=== PATIENT | male | born 1945 | race Caucasian/White ===

== ENCOUNTER → 2019-01-18 | Outpatient (CLI) | payer OTHER ==
[2018-05-21 11:35] VITALS: BP 119/79
[~2019-01-18] MED LIST: ATEN50TA PO; CYAN-25 PO; CYAN100072 PO; DILT180C2 PO; DILT360C PO; DOXA2TAB2 PO; ENAL20TA PO; HYDR12.575 PO; METF500T16 PO; MULT1TAB6 PO; OMEG1CAP6 PO; OMEG300C PO; RANI75TA89 PO; SIMV40TA3 PO
--- NOTE | 2019-01-20 13:53 | RAD ---
MR#: [id number] Date of Study: 01/18/2019 Ordering Physician: CORNELIO TORRES, Referring Physician: CORNELIO TORRES, Tech: Calixto Landers MBA, RDMS, RVT, RDCS, RTR APPROVED REPORT Patient Location: OUT-PATIENT Indications Rest Pain:Bilaterally VELOCITY AND DOPPLER WAVEFORM ANALYSIS RIGHT cm/secWaveformSeverity LEFT cm/secWaveform Severity dCFA 124.0TriphasicdCFA 122.0Triphasic Prof Fem Art. 64.0BiphasicProf Fem Art. 48.0Biphasic Fem Art Prox. 152.0TriphasicFem Art Prox. 140.0Triphasic Fem Art Mid. 127.0TriphasicFem Art Mid. 140.0Triphasic Fem Art Dist. 120.0TriphasicFem Art Dist. 94.0Triphasic Pop Art(Fossa) 120.0BiphasicPop Art(AK) 95.0Biphasic CLINICAL RESOURCE DIRECTOR Prox. 67.0BiphasicPTA Prox. 69.0Biphasic CLINICAL RESOURCE DIRECTOR Dist. 47.0BiphasicPTA Dist. 89.0Triphasic Per Art Mid. 65.0BiphasicPer Art Mid. 52.0Biphasic ALEJO Prox. 81.0TriphasicATA Prox. 36.0Biphasic DPA 117TriphasicDPA 74Triphasic Findings Grayscale images of the bilateral lower ext arterial vessels demonstrate mild diffuse plaque without any focal high-grade stenosis Spectral waveforms are mostly triphasic and biphasic throughout the arterial course. No focal high-gr brandie obstruction noted. There is three-vessel runoff below the knee. Critical Notification Critical Value: No <Conclusion> 1. No significant high-grade focal lower ext arterial disease Signed by : Kenny Torres, Electronically Approved : 01/18/2019 12:43:27
== END | disposition home or self-care (01) ==
LOC: US 07:21
PROVIDERS: ATTEND Internal Medicine Cardiovascular Disease
DX: I70.203 Unspecified atherosclerosis of native arteries of extremities, bilateral legs (principal)
CPT/HCPCS: 93925

== ENCOUNTER → 2019-07-05 | Outpatient (CLI) | payer MEDICARE ==
[2018-05-21 11:35] VITALS: BP 119/79
[~2019-07-05] MED LIST changes: +SIMV40TA18 PO; -SIMV40TA3 PO
[2019-07-05] MEDS: REGADENOSON 0.4 MG/5 ML DISP.SYRIN. IV ONE (11:12)
--- NOTE | 2019-07-05 11:27 | CARD ---
MR#: [id number] Date of Study: 07/05/2019 Ordering Physician: CORNELIO TORRES, Referring Physician: CORNELIO TORRES, Tech: Emelia Barbozajanice APPROVED REPORT EXAM: Two-dimensional and M-mode echocardiogram with Doppler and color Doppler. Other Information Quality : AverageHR: 61bpm INDICATION Cardiac Disease: CAD RISK FACTORS Hypertension Hyperlipidemia Diabetes 2D DIMENSIONS RVDd4.1 (2.9-3.5cm)Left Atrium(2D)3.1 (1.6-4.0cm) IVSd1.3 (0.7-1.1cm)Aortic Root(2D)3.5 (2.0-3.7cm) LVDd5.0 (3.9-5.9cm)LVOT Diameter2.3 (1.8-2.4cm) PWd1.2 (0.7-1.1cm)LVDs3.5 (2.5-4.0cm) FS (%) 30.9 %SV70.0 ml LVEF(%)58.3 (>50%) Aortic Valve AoV Peak Manuel.108.2cm/sAoV VTI23.4cm AO Peak GR.4.7mmHgLVOT Peak Manuel.80.9cm/s LVOT VTI 18.28cmAO Mean GR.3mmHg RAFIQ (VMAX)2.81cg4QEF (VTI)3.31cm2 Mitral Valve MV E Ewxlgwhb69.7cm/sMV DECEL ISRJ592dn MV A Aepzlqiv69.6cm/sMV E Mean Gr.1mmHg MV NEA78inL/A Ratio0.9 MVA (PHT)2.69cm2 TDI E/Lateral E'8.0E/Medial E'9.0 Pulmonary Valve PV Peak Vurhoddp38.0cm/sPV Peak Grad.3mmHg Tricuspid Valve TR P. Lxskagzx104cq/sRAP SOYOHIQA6coUw TR Peak Gr.38kgRiQNGQ48sfLu Pulmonary Vein S1 Ejnuxleg79.7cm/sD2 Aegiizqe56.7cm/s PVa naqgxcur660ffpw LEFT VENTRICLE The left ventricle is normal size. There is moderate concentric left ventricular hypertrophy. The lef t ventricular systolic function is normal. The Ejection Fraction is 55%. There is normal LV segmental wall motion. Transmitral Doppler flow pattern is Grade I-abnormal relaxation pattern. RIGHT VENTRICLE The right ventricle is normal size. There is normal right ventricular wall thickness. The right ventr icular systolic function is normal. ATRIA The left atrium size is normal. The right atrium is borderline dilated. The interatrial septum is int act with no evidence for an atrial septal defect or patent foramen ovale as noted on 2-D or Doppler i maging. AORTIC VALVE The aortic valve is normal in structure and function. Doppler and Color Flow revealed no significant aortic regurgitation. There is no significant aortic valvular stenosis. MITRAL VALVE The mitral valve is normal in structure and function. There is no evidence of mitral valve prolapse. There is no mitral valve stenosis. Doppler and Color Flow revealed no mitral valve regurgitation note d. TRICUSPID VALVE The tricuspid valve is normal in structure and function. Doppler and Color Flow revealed trace tricus pid regurgitation with an estimated PAP of 35 mmHg. There is no tricuspid valve stenosis. PULMONIC VALVE The pulmonic valve is not well visualized. Doppler and Color Flow revealed trace pulmonic valvular re gurgitation. GREAT VESSELS The aortic root is normal in size. The IVC is normal in size and collapses >50% with inspiration. PERICARDIAL EFFUSION There is no evidence of significant pericardial effusion. Critical Notification Critical Value: No <Conclusion> The left ventricular systolic function is normal. The Ejection Fraction is 55%. There is normal LV segmental wall motion. Transmitral Doppler flow pattern is Grade I-abnormal relaxation pattern. Trace tricuspid regurgitation with an estimated PAP of 35 mmHg. There is no evidence of significant pericardial effusion. Signed by : Cornelio Torres, Electronically Approved : 07/05/2019 11:27:00
--- NOTE | 2019-07-05 13:38 | RAD ---
MR#: [id number] Date of Study: 07/05/2019 Ordering Physician: CORNELIO TORRES, Referring Physician: NORA WALKER Tech: SHANAE Car APPROVED REPORT Test Type: Pharmacological Stress Nurse/Tech: Tete Washington RN Test Indications: CAD Cardiac History: Hypertension, Diabetes, Cardiac Stents Medications: See Electronic Medical Record Medical History: See Electronic Medical Record Resting ECG: SR Resting Heart Rate: 60 bpm Resting Blood Pressure: 134/74mmHg Pretest Chest Pain: No chest pain Nurse/Tech Notes S1S2, Lungs CTA Consent: The procedure was explained to the patient in lay terms. Informed consent was witnessed. George eout was entered into [employer]. History and Stress Test performed by CHRISTIANO Davidson, AQUILINO (R) (N) Pharm. Details Pharmacologic stress testing was performed using 0.4mg per 5ml of regadenoson given intravenously ove r 7-10 seconds. Stress Symptoms Dyspnea, Flushing POST EXERCISE Reason for Termination: Infusion complete Max HR: 79 bpm Max Blood Pressure: 126/51mmHg Blood Pressure response to exercise: Normal blood pressure response during stress. Heart Rate response to exercise: WNL Chest Pain: No. Arrhythmia: No. ST Change: No. INTERPRETATION Stress EKG Conclusion: Baseline EKG showed sinus rhythm. No ischemic changes at peak stress. No arr hythmias. Imaging Protocol IMAGE PROTOCOL: Rest Tc-99m/stress Tc-99m 1 day Rest: Stress: Viability: Radiopharm.Tc99m AevjfwifaXa78v Sestamibi Dose10.1mCi 33mCi Duration 15min. 13min. Img Date 07/05/2019 07/05/2019 Inj-Img Byis70zld. 60min. Rest Admin Site:IV - Right HandAdministrator:RT Mahnaz (R)(N) Stress Admin Site: IV - Right HandAdministrator: CHRISTIANO Davidson, KEIKOT (R)(N) STRESS DATA End Diast. Vol.103.0mlLVEDV index BSA47.0ml End Syst. Vol.38.0mlLVESV index BSA17.0ml Myocardial Shju569.0gEject. Iyaplxjx68.0% Stress Scores Regional WT1.00Summed WT7.00 Regional WM0.00Summed WM0.00 Study quality was good. Left Ventricular size was Normal at Rest and Stress. Lung uptake was . Left Ventricular ejection fraction is 63%. The rest and stress images show normal perfusion, normal contraction and thickening. LV Perf. Quant 17 Seg. SSS3.00 17 Seg. SRS0.00 17 Seg. SDS3.00 Stress Defect Extent (% LAD)0.00Rest Defect Extent (% LAD)0.00Rev. Defect Extent (% LAD)0.00 Stress Defect Extent (% LCX) 0.00Rest Defect Extent (% LCX)0.00Rev. Defect Extent (% LCX)0.00 Stress Defect Extent (% RCA)12.20Rest Defect Extent (% RCA)0.00Rev. Defect Extent (% RCA)12.20 Stress Defect Extent (% DELFINO)2.40Rest Defect Extent (% DELFINO)0.00Rev. Defect Extent (% DELFINO)2.40 Conclusion 1. Regadenoson cardioisotope stress test did not show any evidence of ischemia or infarct. 2. Normal left ventricular systolic function with ejection fraction calculated at 63%. 3. Low risk for cardiac events. Signed by : Cornelio Torres, Electronically Approved : 07/05/2019 13:37:26
== END ==
LOC: NM 09:17
PROVIDERS: ATTEND Internal Medicine Cardiovascular Disease
DX: I25.10 Atherosclerotic heart disease of native coronary artery without angina pectoris (principal); I51.7 Cardiomegaly
CPT/HCPCS: 78452; 93017; 93306; A9500; J2785